=== PATIENT | female | born 1990 | race Asian ===

== ENCOUNTER → 2023-11-28 06:17 | Day surgery (SDC) | payer OTHER, SELFPAY | LOC: GI 06:17 | PROVIDERS: ATTENDING PHYSICIAN Internal Medicine Gastroenterology | DX: K51.30 Ulcerative (chronic) rectosigmoiditis without complications (principal); K62.89 Other specified diseases of anus and rectum; K64.8 Other hemorrhoids | CPT/HCPCS: 45380; 88305 ==